=== PATIENT | female | born 1945 | race African-American/Black ===

== ENCOUNTER 2018-04-25 09:05 | Outpatient (CLI) | payer MEDICARE, BC ==
--- NOTE | 2018-04-25 12:25 | BD ---
DEXA BONE DENSITY SCAN: 04/25/2018 HISTORY: Postmenopausal female, undergoing screening for osteoporosis. COMPARISON: 03/31/2011 LUMBAR SPINE BMD (g/cm2) T-SCORE PREVIOUS T-SCORE L1 1.026 0.3 -0.6 L2 1.023 0.0 -0.5 L3 0.968 -1.1 -1.7 L4 1.032 -0.3 -1.1 TOTAL 1.012 -0.3 -1.1 FEMORAL NECK: 0.804 -0.4 -0.6 TOTAL: 1.005 0.5 0.3 The bone mineral density within the femoral neck has improved by 3.1% when compared to the prior exam . The bone mineral density within the lumbar spine has improved by 8.8% when compared to the prior e xam. The FRAX-WHO Fracture Risk Assessment Score reports a 10-year fracture risk, in an untreated patient, at 3.4% for a major osteoporotic fracture and 0.3% for a hip fracture. IMPRESSION: Normal lumbar spine and proximal femoral bone mineral density, as above. POS: MARCO ANTONIO
== END 2018-04-25 09:06 | disposition home or self-care (01) ==
LOC: BICMAMMO 09:05
PROVIDERS: ATTEND Family Medicine
DX: Z12.31 Encounter for screening mammogram for malignant neoplasm of breast (principal); Z13.820 Encounter for screening for osteoporosis; M81.0 Age-related osteoporosis without current pathological fracture
CPT/HCPCS: 77063; 77067; 77080

== ENCOUNTER 2019-03-27 13:44 | Outpatient (CLI) | payer MEDICARE, BC | END 2019-03-27 13:45 | disposition home or self-care (01) | LOC: DTY/OP 13:44 | PROVIDERS: ATTEND Family Medicine | DX: R73.03 Prediabetes (principal) | CPT/HCPCS: 97802 ==

== ENCOUNTER 2019-04-28 10:38 | Outpatient (CLI) | payer MEDICARE, BC ==
--- NOTE | 2019-04-28 13:43 | MMO ---
Bilateral MAMMO Bilat Screen [facility]. CLINICAL HISTORY: Patient is 73 years old and is seen for screening. The patient has no family history of breast cancer. The patient has no personal history of cancer. VIEWS: The views performed were: bilateral craniocaudal with tomosynthesis and bilateral mediolateral oblique with tomosynthesis. FILMS COMPARED: The present examination has been compared to prior imaging studies performed at [facility] on 04/16/2015, 04/18/2016, 04/23/2017 and 04/25/2018. This study has been interpreted with the assistance of computer-aided detection. MAMMOGRAM FINDINGS: There are scattered fibroglandular densities. There are no suspicious masses, suspicious calcifications, or new areas of architectural distortion. IMPRESSION: THERE IS NO MAMMOGRAPHIC EVIDENCE OF MALIGNANCY. A ROUTINE FOLLOW-UP MAMMOGRAM IN 1 YEAR IS RECOMMENDED. THE RESULTS OF THIS EXAM WERE SENT TO THE PATIENT. ACR BI-RADS Category 1 - Negative MAMMOGRAPHY NOTE: 1. A negative mammogram report should not delay a biopsy if a dominant of clinically suspicious mass is present. 2. Approximately 10% to 15% of breast cancers are not detected by mammography. 3. Adenosis and dense breasts may obscure an underlying neoplasm. Reported by: DAKOTA JEAN BAPTISTE MD Electonically Signed: [id number]
== END 2019-04-28 10:39 | disposition home or self-care (01) ==
LOC: BICMAMMO 10:38
PROVIDERS: ATTEND Family Medicine
DX: Z12.31 Encounter for screening mammogram for malignant neoplasm of breast (principal)
CPT/HCPCS: 77063; 77067

== ENCOUNTER 2019-08-26 18:47 | Observation (INO) | payer MEDICARE, BC ==
--- NOTE | 2019-08-26 19:26 | CT ---
Head CT without contrast 08/26/2019: Comparison: None HISTORY: Slurred speech and altered mental status TECHNIQUE: Axial CT imaging at 5 mm intervals from vertex through skull base without contrast FINDINGS: No intracranial hemorrhage, midline shift, mass effect, or ventricular enlargement. The visualized paranasal sinuses and mastoid air cells are well-aerated with no displaced calvarial f racture noted. IMPRESSION: No acute findings. Results called to Dr. Ribera at 7:23 PM 08/26/2019
[2019-08-26] MEDS ORDERED: niCARdipine 20MG In NaCl 20 MG/200 ML BAG ONE (19:28)
[2019-08-26 19:40] LABS: #Lymphocytes 1.8 thou/uL (1.20-3.40); #Monocytes 0.3 thou/uL (0.11-0.59); #Neutrophils 2.6 thou/uL (1.40-6.50); %Basophils 0.4 % (0.0-1.0); %Eosinophils 0.2 % (0.0-10.0); %Lymphocytes 38.1 % (21.0-51.0); %Monocytes 5.5 % (0.0-10.0); %Neutrophils 55.8 % (42.0-75.0); Hemoglobin 13.7 g/dL (12.0-16.0); Mean Corpuscular HGB CONC 34.7 g/dL (32.0-36.0); Mean Corpuscular Hemoglobin 34.7 pg (27.0-31.0); Mean Platelet Volume 9.1 fL (7.4-10.4); Platelet Count 150 thou/uL (130-400); RBC Distribution Width 11.9 % (11.5-14.5); Red Blood Cell (RBC) Count 3.96 mill/uL (4.20-5.40); White Blood Cell (WBC) Count 4.6 thou/uL (4.8-10.8)
[2019-08-26 19:44] LABS: Bilirubin Negative (Negative); Blood, Urine Negative (Negative); Clarity Clear (Clear); Glucose, Urine (Dipstick) Normal (Negative); Leukocyte Negative Leu/uL (Negative); Nitrite Negative (Negative); Protein, Urine (Dipstick) Negative (Neg-Trace); Urobilinogen Normal mg/dL (Less than 2)
[2019-08-26 19:52] LABS: Amphetamine Not Detected (NotDetected); Barbiturates Screen Not Detected (NotDetected); Benzodiazepine Screen Not Detected (NotDetected); Cocaine Metabolite Screen Not Detected (NotDetected); Medtox Control Line Valid? VALID (VALID); Medtox Reader # READER 4; Methadone Not Detected (NotDetected); Methamphetamine Not Detected (NotDetected); Opiate Screen Not Detected (NotDetected); Oxycodone Screen Not Detected (NotDetected); Phencyclidine (PCP) Not Detected (NotDetected); THC/Cannabinoid Screen Not Detected (NotDetected); Tricyclic Screen Not Detected (NotDetected)
[2019-08-26 20:13] LABS: ALT (SGPT) 19 U/L (8-55); AST (SGOT) 24 U/L (5-34); Albumin 4.3 g/dL (3.4-4.8); Alkaline Phosphatase 76 U/L (40-110); Anion Gap 15 mmol/L (10-20); BUN (Urea Nitrogen) 12 mg/dL (9.8-20.1); Bilirubin, Total 0.5 mg/dL (0.2-1.2); Calc. Creatinine Clearance 0 mL/min (70-130); Calcium 10.2 mg/dL (7.8-10.44); Carbon Dioxide 21 mmol/L (23-31); Chloride 106 mmol/L (98-107); Estimated GFR-MDRD 60; Globulin 3.6 g/dL (2.4-3.5); Glucose 153 mg/dL (83-110); Potassium 3.9 mmol/L (3.5-5.1); Sodium 137 mmol/L (136-145)
[2019-08-26 21:40] LABS: Troponin I Less than 0.010 ng/mL (< 0.028)
--- NOTE | 2019-08-26 21:57 | PDOC.FPRHP ---
- History of Present Illness Chief Complaint: AMS History of Present Illness: Patient is a 73 yo female who presents with her ex- with complaint of altered mental status since about 183 today. Patient's ex- reports that he went over to patient's house at about 1730 and patient greeted him at the door and then went back to her room shortly after to lay down. They were watching television together when he says around 1830 patient had increased confusion, slurred words, complained of headache, nose burning, nausea, and gagging. The ex- called EMS who brought her to ED where she was found to have a BP of 211/77, repeat manual BP 218/92. Patient's states the patient has never had a stroke or ND in the past, but unable to recall most of the patient's medical history. Patient was able to follow commands but had muffled speech, thus rest of history and ROS unobtainable. ED Course: Started on Nicardipine gtt in ED. - Allergies/Adverse Reactions Allergies Allergy/AdvReac Type Severity Reaction Status Date / Time No Known Allergies Allergy Verified 08/27/19 13:29 - History PMHx: HTN, Hypothyroid, Vertigo, Allergic rhinitis, DJD, Anemia, Vitamin D deficiency, Cataracts, Obesity PSHx: none FHx: unknown Social: no smoking or EtOH use per clinic records - Review of Systems ROS unobtainable: due to mental status - Vital signs BP: 218/92 HR: 73 RR: 19 Tmax: 98.0F Pox: 95%% on RA - Physical Exam Constitutional: NAD, well developed -Constitutional: Alert when stimulated, oriented to person and place. HEENT: normocephalic and atraumatic, EOMI (but unable to accomodate), conjunctiva clear, MMM -HEENT: minimal pupillary change with light bilateral cataracts present Neck: supple, no JVD Heart: RRR, normal S1/S2, no murmurs/rubs/gallops, pulses present, no edema Lungs: CTAB, no respiratory distress, good air movement, no rales/rhonchi, no wheezing Abdomen: soft, bowel sounds present Musculoskeletal: normal structure, normal tone -Neurological: strength 5/5 in extremities, can lift legs on command. Difficult to assess sensation. Skin: no rash/lesions -Psychiatric: AMS FMR H&P: Results - Labs Result Diagrams: 08/27/19 05:06 08/27/19 05:06 Lab results: WBC 4.6 thou/uL (4.8-10.8) L 08/26/19 19:29 Hgb 13.7 g/dL (12.0-16.0) 08/26/19 19:29 Hct 39.6 % (36.0-47.0) 08/26/19 19: MCV 100.0 fL (78.0-98.0) H 08/26/19 19:29 Plt Count 150 thou/uL (130-400) 08/26/19 19: Neutrophils % 55.8 % (42.0-75.0) 08/26/19 19:29 Sodium 137 mmol/L (136-145) 08/26/19 19:23 Potassium 3.9 mmol/L (3.5-5.1) 08/26/19 19: Chloride 106 mmol/L (98-107) 08/26/19 19:23 Carbon Dioxide 21 mmol/L (23-31) L 08/26/19 19:23 BUN 12 mg/dL (9.8-20.1) 08/26/19 19:23 Creatinine 1.07 mg/dL (0.6-1.1) 08/26/19 19:23 Glucose 153 mg/dL (83-110) H 08/26/19 19:23 Calcium 10.2 mg/dL (7.8-10.44) 08/26/19 19:23 Total Bilirubin 0.5 mg/dL (0.2-1.2) 08/26/19 19:23 AST 24 U/L (5-34) 08/26/19 19:23 ALT 19 U/L (8-55) 08/26/19 19:23 Alkaline Phosphatase 76 U/L (40-110) 08/26/19 19:23 Ammonia 15 umol/L (18-72) L 08/26/19 19:23 Serum Total Protein 8.0 g/dL (6.0-8.3) 08/26/19 19:23 Albumin 4.3 g/dL (3.4-4.8) 08/26/19 19:23 Urine Ketones 10 mg/dL (Negative) A 08/26/19 19:29 Urine Blood Negative (Negative) 08/26/19 19:29 Urine Nitrite Negative (Negative) 08/26/19 19:29 Ur Leukocyte Esterase Negative Ld/uL (Negative) 08/26/19 19:29 FMR H&P: A/P - Problem List (1) Hypertensive encephalopathy Current Visit: Yes Status: Acute Code(s): I67.4 - HYPERTENSIVE ENCEPHALOPATHY (2) Cataracts, bilateral Current Visit: Yes Status: Acute Code(s): H26.9 - UNSPECIFIED CATARACT Qualifiers: Cataract type: unspecified Qualified Code(s): H26.9 - Unspecified cataract - Plan Patient is a 73 yo Female with PMHx of HTN who presents with AMS: #AMS 2/2 Suspected HTN Encephalopathy -started on Nicardipine ggt in ED -Plan to restart home meds once med rec is complete--per TAMP patient currently taking Metoprolol -consider MRI if no improvement in symptoms to eval for CVA -neuro exam grossly normal with exception of orientation -NPO until improved orientation or bedside swallow eval complete #DM -diet controlled -fasting BS in AM with labs #Hx of hypothyroidism: -per chart review no meds since 12/2018 -TSH 0.7 Diet: NPO until mental status improves or Speech eval DVT Ppx: Lovenox GI Ppx: Pepcid Code: Full Dispo: Stable, admit to inpatient in CCU unit. Continue Cardene gtt, monitor neuro status. Anticipate discharge in >48 hours. FMR H&P: Upper Level - Plan Date/Time: 08/26/192156 ICecy DO, have evaluated this patient and agree with findings/plan as outlined by manager internet resident. Pertinent changes/additions are listed here. Pt is a 73 yo F with PMH of HTN, DM, hypothyroidism, vit D deficiency presenting for AMS, onset 1730 this afternoon, called ex- because she felt ill. He reports normal interaction x1h after he got there then began to slur words and not answer appropriately. She complains of nose tingling and WATTS. Denies any weakness, dizziness, facial droop. VS: 218/92, 73, R19, T98.0, 95% on RA PE: Gen: well developed, NAD, appears sleepy HEENT: Moist MM, no LAD, no JVD, PERRL Heart: RRR, no murmurs or extra sounds. Distal pulses 2+ Lungs: CTAB, no wheezing. No increased work of breathing Abd: soft, nontender, BS+ Ext: no cyanosis or edema Neuro: responds to command- GCS 14, UE and LE strength 5/5, no sensory deficit, no facial droop, mild slurring of speech Skin: no rashes or wounds present Psych: AOx2, drowsy Pertinent Labs/Imaging: CT head negative TSH 0.7 UA neg UDS neg Glucose 153 A/P: AMS 2/2 Suspected HTN Encephalopathy: -started on cardene ggt in ED -Plan to restart home meds once med rec is complete. Per clinic chart, only on Metoprolol for BP. -consider CVA as alternate dx if no improvement with BP control, although it does not appear to be CVA- slurred speech seems more related to drowsiness, not inability to form words, neuro exam wnl with exception of orientation. -NPO until improved orientation or bedside swallow eval complete. DM -diet controlled -fasting BS in AM with labs -CC diet when able to eat Hx of hypothyroidism: -per chart review no meds since 12/2018 and recent nl TSH at clinic. Also normal TSH here. DVT Ppx: Lovenox GI Ppx: Pepcid Code: Full Addendum - Attending - Attending Attestation Date/Time: 08/27/192014 I personally evaluated the patient and discussed the management with . [] I agree with the History, Examination, Assessment and Plan documented above with any addition or exceptions noted below. 73 yo female with HTN presents for AMS. Patient with negative CVA workup at present. Symptoms likely related to Hypertensive encephalopathy. Unable to bring BP down. Will start art line for monitoring and treat with CCB. Admit to ICU. Trend trop. MRI in AM to rule out infarcts. Monitor closely. Nathan
--- NOTE | 2019-08-26 22:10 | RAD ---
Portable frontal chest radiograph: 08/26/2019 COMPARISON: 02/13/2010 HISTORY: Altered mental status FINDINGS: New mild interstitial prominence in the perihilar regions with pulmonary vascular congestio n. Mild prominence of the cardiac silhouette. No pneumothorax, alveolar edema, focal consolidation, or large volume pleural effusion. IMPRESSION: Pulmonary vascular congestion with mild perihilar interstitial prominence and prominence of the cardiac silhouette.
[2019-08-26] MEDS ORDERED: Acetaminophen 650 MG Suppository PR PRN (22:32)
[2019-08-26] MEDS ORDERED: Ondansetron ODT 4 MG TAB PO PRN (22:32)
[2019-08-26] MEDS ORDERED: Acetaminophen 325 MG TAB PO PRN (22:32)
[2019-08-26] MEDS ORDERED: Ondansetron PF 4 MG/2 ML Vial IVP PRN (22:32)
[2019-08-26] MEDS ORDERED: Calcium Carbonate 500 MG ChewTAB PO PRN (22:32)
[2019-08-26] MEDS ORDERED: niCARdipine 25 MG in Sodium Chloride 0.9% 250 ML 240 ML IVPB SCH (22:45)
[2019-08-27 05:21] LABS: #Monocytes 0.1 thou/uL (0.11-0.59); #Neutrophils 4.2 thou/uL (1.40-6.50); %Basophils 0.2 % (0.0-1.0); %Eosinophils 0.3 % (0.0-10.0); %Lymphocytes 19.3 % (21.0-51.0); %Monocytes 1.4 % (0.0-10.0); %Neutrophils 78.7 % (42.0-75.0); Hemoglobin 13.5 g/dL (12.0-16.0); Mean Corpuscular HGB CONC 35.1 g/dL (32.0-36.0); Mean Corpuscular Hemoglobin 35.4 pg (27.0-31.0); Mean Platelet Volume 9.1 fL (7.4-10.4); Platelet Count 143 thou/uL (130-400); RBC Distribution Width 11.9 % (11.5-14.5); Red Blood Cell (RBC) Count 3.82 mill/uL (4.20-5.40); White Blood Cell (WBC) Count 5.4 thou/uL (4.8-10.8)
[2019-08-27 05:43] LABS: ALT (SGPT) 17 U/L (8-55); AST (SGOT) 21 U/L (5-34); Alkaline Phosphatase 68 U/L (40-110); Anion Gap 14 mmol/L (10-20); BUN (Urea Nitrogen) 10 mg/dL (9.8-20.1); Bilirubin, Total 0.5 mg/dL (0.2-1.2); Calc. Creatinine Clearance 0 mL/min (70-130); Calcium 9.3 mg/dL (7.8-10.44); Carbon Dioxide 17 mmol/L (23-31); Chloride 105 mmol/L (98-107); Estimated GFR-MDRD 79; Globulin 3.5 g/dL (2.4-3.5); Glucose 140 mg/dL (83-110); Potassium 3.7 mmol/L (3.5-5.1); Protein, Total 7.5 g/dL (6.0-8.3); Sodium 132 mmol/L (136-145)
[2019-08-27] MEDS ORDERED: Hydrochlorothiazide 25 MG TAB PO SCH (09:00)
--- NOTE | 2019-08-27 10:44 | PDOC.FM ---
- Subjective Subjective: NAEO. Patient resting comfortably in bed. She is off the cardene drip. She is axox3. She is conversative, wanting to eat, sitting up. She states that she is feeling much better. Denies any symptoms such as headache, NVD, chest pain, abdominal pain, vision changes, headache, weakness, slurred speech, etc. The only thing she complains of is some cramping in her LE. - Objective MAR Reviewed: Yes Result Diagrams: 08/27/19 05:06 08/27/19 05:06 Phys Exam - Physical Examination Constitutional: NAD HEENT: PERRLA, moist MMs, sclera anicteric Neck: supple, full ROM Respiratory: no wheezing, no rales, no rhonchi, clear to auscultation bilateral Cardiovascular: RRR, no significant murmur, no rub Gastrointestinal: soft, non-tender, no distention, positive bowel sounds Musculoskeletal: no edema Neurological: non-focal, normal sensation, moves all 4 limbs CN II-XII intact; strength 5/5 in all extremities Psychiatric: normal affect, A&O x 3 Skin: no rash, normal turgor, cap refill <2 seconds Dx/Plan (1) Cataracts, bilateral Code(s): H26.9 - UNSPECIFIED CATARACT Status: Acute Qualifiers: Cataract type: unspecified Qualified Code(s): H26.9 - Unspecified cataract (2) Hypertensive encephalopathy Code(s): I67.4 - HYPERTENSIVE ENCEPHALOPATHY Status: Acute - Plan Plan: Patient is a 73 yo Female with PMHx of HTN who presents with AMS: AMS 2/2 Suspected HTN Encephalopathy BP elevated with AMS on presentation. CT brain neg. UDS neg. Trop neg. PMH of HTN on metoprolol. - started on Nicardipine ggt in ED which has been stopped. Patient's BPs have normalized. - Mental status has returned to baseline, she is axox3. Will continue to monitor - Will restart home metoprolol and add amlodipine for BP control - Due to cramping in legs will obtain folate and B12 - MRI pending - neuro exam normal, but want to r/o CVA - admit to medical, possible dc in AM Pre diabetic Diet controlled - A1c pending, will continue to monitor sugars Hx of hypothyroidism Per chart review no meds since 12/2018 - TSH 0.7 Diet: CC DVT Ppx: Lovenox GI Ppx: Pepcid Code: Full Dispo: Stable and improving, admit to medical for obs Case discussed with Dr. Martel
[2019-08-27] MEDS: Enoxaparin Sodium 40 MG/0.4 ML SYRINGE SC SCH (10:49)
[2019-08-27] MEDS ORDERED: Enoxaparin Sodium 40 MG/0.4 ML SYRINGE ONE (10:49)
[2019-08-27] MEDS ORDERED: Famotidine 20 MG TAB ONE (10:49)
[2019-08-27] MEDS: Famotidine 20 MG TAB PO SCH ×2 (10:50→19:50)
--- NOTE | 2019-08-27 11:13 | PRG ---
DATE OF SERVICE: 08/27/2019 ADDENDUM: This is an addendum to the note of Dr. Lyubov Rod. SUBJECTIVE: Ms. Alford is a pleasant 73-year-old black female, who was having some mental status changes and slurred speech late last night. She was brought to the ED after notifying her ex- of these complaints. She was noted at that time to have a significant elevation of her blood pressure to 218/90. She was placed on a Cardene infusion, which has since been discontinued. I examined her on the next morning and she was awake, alert, pleasant, no distress. She had no alteration of her mentation. Her blood pressure was 131/70. LABORATORY DATA: CBC showed a white count of 4600, hemoglobin was 13.7, hematocrit 39.6 with an MCV of 100. Her chemistries; sodium was 137, potassium 3.9, chloride 106, bicarb 21, BUN 12, and creatinine 1.07, which calculates to a GFR of 60. Her glucose was 153. Her initial diagnosis was hypertensive encephalopathy, which is now resolved. I think it would be prudent to get an MRI to be certain that the patient did not sustain a stroke particularly lacunar stroke when her blood pressure was significantly elevated, given her AMS and slurred speech. We will also start her on an oral calcium channel jessie in anticipation of discharging her probably tomorrow. Job ID: [id number]
--- NOTE | 2019-08-27 12:07 | MRI ---
MRI BRAIN WITH AND WITHOUT CONTRAST: DATE: 08/27/2019 HISTORY: 73-year-old female with acute stroke symptoms: altered mental status and dysarthria. TECHNIQUE: Multiple sequences obtained in axial, sagittal, and coronal planes; pre and post IV injection of gado linium-based contrast agent: 15 mL MultiHance. FINDINGS: The ventricles are normal in size and configuration. There is no major intraaxial signal abnormality , restricted diffusion, abnormal intraaxial enhancement, mass, midline shift or any other mass effect , recent intraaxial hemorrhage, or extraaxial fluid collection. IMPRESSION: Normal. jn[] POS: TPC
[2019-08-27 13:44] VITALS: BMI 29.9
[2019-08-27 13:58] LABS: Hemoglobin A1c 5.7 % (4.0-6.0)
--- NOTE | 2019-08-28 07:39 | PDOC.FM ---
- Subjective Subjective: NAEO. Patient resting comfortably in bed. AXOX3. Patient has no complaints or concerns. States she feels well and ready to go home. Denies any headache, chest pain, palpitations, vision changes, NVD. - Objective MAR Reviewed: Yes Vital Signs & Weight: Vital Signs (12 hours) Temp Pulse Resp BP Pulse Ox 08/28/19 04:55 98 F 57 L 20 135/78 98 08/27/19 23:36 98.1 F 61 18 117/68 99 08/27/19 21:18 97.7 F 62 20 137/82 98 Weight Weight 81.448 kg Result Diagrams: 08/27/19 05:06 08/27/19 05:06 Phys Exam - Physical Examination Constitutional: NAD HEENT: PERRLA, moist MMs, sclera anicteric Neck: supple, full ROM Respiratory: clear to auscultation bilateral Cardiovascular: RRR, no significant murmur, no rub Gastrointestinal: soft, non-tender, no distention, positive bowel sounds Musculoskeletal: no edema Neurological: non-focal, moves all 4 limbs Psychiatric: normal affect, A&O x 3 Skin: no rash, normal turgor, cap refill <2 seconds Dx/Plan (1) Cataracts, bilateral Code(s): H26.9 - UNSPECIFIED CATARACT Status: Acute Qualifiers: Cataract type: unspecified Qualified Code(s): H26.9 - Unspecified cataract (2) Hypertensive encephalopathy Code(s): I67.4 - HYPERTENSIVE ENCEPHALOPATHY Status: Acute - Plan Plan: Patient is a 73 yo Female with PMHx of HTN who presents with AMS: AMS 2/2 Suspected HTN Encephalopathy BP elevated with AMS on presentation. CT brain neg. UDS neg. Trop neg. PMH of HTN on metoprolol. S/p nicardipine drip in the ER which was stopped after BP normalized on day of admission. MRI nml. - Mental status has returned to baseline, she is axox3. Will continue to monitor - Will restart home metoprolol and add amlodipine for BP control. BPs have been at goal. Pre diabetic Diet controlled - A1c 5.7. Counselled on lifestyle modifications. Hx of hypothyroidism Per chart review no meds since 12/2018 - TSH 0.7 Diet: CC DVT Ppx: Lovenox GI Ppx: Pepcid Code: Full Dispo: discharge torickey Case discussed with Dr. Newton Addendum - Attending - Attending Attestation Date/Time: 08/28/19 1016 I personally evaluated the patient and discussed the management with Dr. Dillon I agree with the History, Examination, Assessment and Plan documented above with any addition or exceptions noted below - Patient denies any complaints. Ambulating, tolerating diet. Afebrile VSS. A/P: Metabolic encephalopathy secondary to hypertension- now resolved. 2) HTN- improved; continue current meds. Plan to d/c home today. .
[2019-08-28] MEDS ORDERED: Amlodipine 5 MG TAB PO SCH (09:00)
[2019-08-28] MEDS: Famotidine 20 MG TAB PO SCH (09:27)
[2019-08-28] MEDS: Enoxaparin Sodium 40 MG/0.4 ML SYRINGE SC SCH (09:28)
[2019-08-28 10:37] VITALS: TEMP 98.1
[2019-08-28 14:11] VITALS: BP 125/75
[2019-08-28 15:13] LABS: Hematocrit 37.9 % (34.0-46.6); RBC Folate Test Component 1219 ng/mL (>498)
--- NOTE | 2019-08-28 22:28 | DIS ---
DATE OF ADMISSION: 08/26/2019 DATE OF DISCHARGE: 08/28/2019 RESIDENT: Buffy Dillon MD ADMITTING ATTENDING: rOa Nair MD DISCHARGE ATTENDING: Kimberly Newton MD CONSULTS: None. PROCEDURES PERFORMED: 1. Brain CT on 08/26/2019, showing no acute findings. 2. Chest x-ray on 08/26/2019, showing pulmonary vascular congestion with mild perihilar interstitial prominence and prominence of the cardiac silhouette. 3. Brain MRI on 08/27/2019, normal. DISCHARGE MEDICATIONS: 1. Norvasc 5 mg oral daily. 2. Multivitamin one cap oral daily. 3. Fish oil 1000 mg oral daily. DISCONTINUED MEDICATIONS: None. PRIMARY DIAGNOSIS: Altered mental status, secondary to hypertensive encephalopathy. SECONDARY DIAGNOSES: Prediabetes, history of hypothyroidism. HISTORY OF PRESENT ILLNESS/HOSPITAL COURSE: This is a 73-year-old female, who presented to the ER after the ex- noticing that she was altered while watching TV. When she was initially seen in the ER, the patient was very disoriented, appeared confused, and was complaining of headache as well as nausea. The patient was found to have BP at that time of 211/77 and repeat manual was 218/92. The patient was started on a nicardipine drip in the ER. The patient was initially going to be admitted to the IMCU, but her pressures resolved shortly thereafter and was taken off the nicardipine drip. The patient was then moved to the medical floor and started on amlodipine 5 mg daily. Her blood pressures remained at goal throughout her stay and her mentation resolved. DISPOSITION: Stable. DISCHARGE INSTRUCTIONS: 1. Location: Home. 2. Activity: Ad kady. 3. Diet: Regular. 4. Followup: Follow up with PCP, Jorge Gastelum, within 7 days. Job ID: [id number] [facility]
--- NOTE | 2019-09-06 13:57 | EKG ---
Test Reason : Blood Pressure : / mmHG Vent. Rate : 065 BPM Atrial Rate : 065 BPM P-R Int : 156 ms QRS Dur : 088 ms QT Int : 408 ms P-R-T Axes : 033 019 -03 degrees QTc Int : 424 ms Normal sinus rhythm Left ventricular hypertrophy with repolarization abnormality Abnormal ECG Confirmed by IRMA LOPEZ DO ([id number]), editor at large DAMASO TUCKER ([id number]) on 09/06/2019 1:57:04 PM Referred By: Confirmed By:IRMA LOPEZ DO
== END 2019-08-28 13:35 | disposition home or self-care (01) ==
LOC: ERS 18:47 → INTOOBSV 21:19 → ERHOLD 21:19 → T4-B 08-27 13:14
PROVIDERS: ADMIT Student in an Organized Health Care Education/Training Program; ATTEND Student in an Organized Health Care Education/Training Program
DX: I67.4 Hypertensive encephalopathy (principal); R47.81 Slurred speech; I10 Essential (primary) hypertension; R73.03 Prediabetes; E03.9 Hypothyroidism, unspecified; H26.9 Unspecified cataract; M19.90 Unspecified osteoarthritis, unspecified site; E55.9 Vitamin D deficiency, unspecified; E66.9 Obesity, unspecified; Z68.29 Body mass index [BMI] 29.0-29.9, adult; Z79.899 Other long term (current) drug therapy
CPT/HCPCS: 51701; 70450; 70553; 71045; 80053; 80306; 81003; 82140; 82607; 82746; 82747; 82962; 83036; 83880; 84484; 85014; 85025; 87040; 93005; 96365; 96366; 96372 ×2; 99285; G0378 ×2; 36415; 36416; 84443; A4353; J1650

== ENCOUNTER 2020-04-29 09:55 | Outpatient (CLI) | payer MEDICARE, BC ==
--- NOTE | 2020-04-29 11:56 | MMO ---
Bilateral MAMMO Bilat Screen [facility]. CLINICAL HISTORY: Patient is 74 years old and is seen for screening. The patient has no family history of breast cancer. The patient has no personal history of cancer. VIEWS: The views performed were: bilateral craniocaudal with tomosynthesis and bilateral mediolateral oblique with tomosynthesis. FILMS COMPARED: The present examination has been compared to prior imaging studies performed at [facility] on 04/18/2016, 04/23/2017, 04/25/2018 and 04/28/2019. This study has been interpreted with the assistance of computer-aided detection. MAMMOGRAM FINDINGS: There are scattered fibroglandular densities. There are no suspicious masses, suspicious calcifications, or new areas of architectural distortion. IMPRESSION: THERE IS NO MAMMOGRAPHIC EVIDENCE OF MALIGNANCY. A ROUTINE FOLLOW-UP MAMMOGRAM IN 1 YEAR IS RECOMMENDED. THE RESULTS OF THIS EXAM WERE SENT TO THE PATIENT. ACR BI-RADS Category 1 - Negative MAMMOGRAPHY NOTE: 1. A negative mammogram report should not delay a biopsy if a dominant of clinically suspicious mass is present. 2. Approximately 10% to 15% of breast cancers are not detected by mammography. 3. Adenosis and dense breasts may obscure an underlying neoplasm. Reported by: FLORA BRONSON MD Electonically Signed: [id number]
== END 2020-04-29 09:56 | disposition home or self-care (01) ==
LOC: BICMAMMO 09:55
PROVIDERS: ATTEND Family Medicine
DX: Z12.31 Encounter for screening mammogram for malignant neoplasm of breast (principal)
CPT/HCPCS: 77063; 77067

== ENCOUNTER 2021-05-17 13:21 | Outpatient (CLI) | payer MEDICARE, BC | END 2021-05-17 13:22 | disposition home or self-care (01) | LOC: BICMAMMO 13:21 | PROVIDERS: ATTEND Family Medicine | DX: Z12.31 Encounter for screening mammogram for malignant neoplasm of breast (principal) | CPT/HCPCS: 77063; 77067 ==

== ENCOUNTER 2022-05-19 08:28 | Outpatient (CLI) | payer MEDICARE, BC | END 2022-05-19 08:29 | disposition home or self-care (01) | LOC: BICMAMMO 08:28 | PROVIDERS: ATTEND Family Medicine | DX: Z12.31 Encounter for screening mammogram for malignant neoplasm of breast (principal) | CPT/HCPCS: 77063; 77067 ==

== ENCOUNTER 2023-05-28 12:50 | Outpatient (CLI) | payer MEDICARE, BC | END 2023-05-28 12:51 | disposition home or self-care (01) | LOC: BICMAMMO 12:50 | PROVIDERS: ATTEND Family Medicine | DX: Z12.31 Encounter for screening mammogram for malignant neoplasm of breast (principal) | CPT/HCPCS: 77063; 77067 ==

== ENCOUNTER 2023-07-25 10:57 | Outpatient (CLI) | payer MEDICARE, BC | END 2023-07-25 10:58 | disposition home or self-care (01) | LOC: DTY/OP 10:57 | PROVIDERS: ATTEND Family Medicine | DX: E11.9 Type 2 diabetes mellitus without complications (principal) | CPT/HCPCS: 97802 ==

== ENCOUNTER 2024-08-22 08:39 | Outpatient (CLI) | payer MEDICARE | END 2024-08-22 08:40 | disposition home or self-care (01) | LOC: BICMAMMO 08:39 | PROVIDERS: ATTEND Family Medicine | DX: Z12.31 Encounter for screening mammogram for malignant neoplasm of breast (principal); Z13.820 Encounter for screening for osteoporosis; M85.851 Other specified disorders of bone density and structure, right thigh | CPT/HCPCS: 77063; 77067; 77080 ==